=== PATIENT | female | born 1960 | race Caucasian/White ===

== ENCOUNTER 2020-01-04 09:28 | Emergency (ER) | payer OTHER ==
[2020-01-04 09:34] VITALS: RESP 18; TEMP 98.1
[2020-01-04] MEDS ORDERED: CLINDAMYCIN 150 MG CAP PO STA (09:45)
[2020-01-04] MEDS ORDERED: ACET/COD 300 MG/30 MG STARTER PACK 6 TAB BTL PO STA (09:45)
--- NOTE | 2020-01-04 09:50 | ED ---
ENT HPI - General Source: patient, RN notes reviewed, old records reviewed Mode of arrival: ambulatory Limitations: no limitations <Karen Raymond - Last Filed: 01/04/20 10:15> <Monica Lemon - Last Filed: 01/07/20 00:42> - General Chief complaint: Dental/Oral Stated complaint: dental pain Time Seen by Provider: 01/04/20 09:37 - History of Present Illness Initial comments: This Patient is a 59-year-old female who presents emergency department today with chief complaint of left upper dental pain for the past 2 weeks. She reports that she was seen by her clinic and was started on an insulin. She reports she's finish the antibiotic but persistent pain is now noticed some facial swelling to the left maxilla. Patient states that she's had no fevers or chills. Patient was also found to have elevated blood pressure while in emergency department with a blood pressure 198/116. Patient denies any headache or chest pain. She reports that she is not have a known history of hypertension or has had any other significant complaints. (Karen Raymond) - Related Data Home Medications Medication Instructions Recorded Confirmed Acetaminophen Tab [Tylenol Tab] 500 mg PO Q6H PRN 01/04/20 01/04/20 Previous Rx's Medication Instructions Recorded Clindamycin [Cleocin] 300 mg PO Q6H #56 cap 01/04/20 amLODIPine [Norvasc] 5 mg PO DAILY #14 tab 01/04/20 Allergies Allergy/AdvReac Type Severity Reaction Status Date / Time No Known Allergies Allergy Verified 01/04/20 10:06 Review of Systems ROS Other: All systems not noted in ROS Statement are negative. <Karen Raymond - Last Filed: 01/04/20 10:15> ROS Other: All systems not noted in ROS Statement are negative. <Monica Lemon - Last Filed: 01/07/20 00:42> ROS Statement: Those systems with pertinent positive or pertinent negative responses have been documented in the HPI. Past Medical History Past Medical History: No Reported History History of Any Multi-Drug Resistant Organisms: None Reported Past Surgical History: No Surgical Hx Reported Past Psychological History: No Psychological Hx Reported Smoking Status: Current every day smoker Past Alcohol Use History: Occasional Past Drug Use History: None Reported <Karen Raymond - Last Filed: 01/04/20 10:15> General Exam Limitations: no limitations General appearance: alert, in no apparent distress Head exam: Present: atraumatic, normocephalic, normal inspection Eye exam: Present: normal appearance, PERRL, EOMI. Absent: scleral icterus, conjunctival injection, periorbital swelling ENT exam: Present: normal exam, mucous membranes moist, other (Patient has dental pain in the left mandibular area, evidence of multiple dental caries. Abscess around tooth 12. ) Neck exam: Present: normal inspection. Absent: tenderness, meningismus, lymphadenopathy Respiratory exam: Present: normal lung sounds bilaterally. Absent: respiratory distress, wheezes, rales, rhonchi, stridor Cardiovascular Exam: Present: regular rate, normal rhythm, normal heart sounds. Absent: systolic murmur, diastolic murmur, rubs, gallop, clicks GI/Abdominal exam: Present: soft, normal bowel sounds. Absent: distended, tenderness, guarding, rebound, rigid <Karen Raymond - Last Filed: 01/04/20 10:15> - General Exam Comments Initial Comments: 59-year-old female. Alert and oriented 3. No distress. (Karen Raymond) Course <Karen Raymond - Last Filed: 01/04/20 10:15> Vital Signs 01/04/20 01/04/20 09:31 10:11 Temperature 98.1 F Pulse Rate 104 H 96 Respiratory 18 18 Rate Blood Pressure 198/116 158/92 O2 Sat by Pulse 98 99 Oximetry - Reevaluation(s) Reevaluation #1: 01/04/20 09:53 Patient is reevaluated blood pressure is now 186/98. (Karen Raymond) Medical Decision Making <Karen Raymond - Last Filed: 01/04/20 10:15> <Monica Lemon - Last Filed: 01/07/20 00:42> - Medical Decision Making Patient is a pleasant 39-year-old female presents emergency Department chief complaint of left upper dental pain. Has evidence of multiple dental caries, with some gingival erythema restaurant in tooth #12. Multiple missing teeth. At this time Patient was started on clindamycin that she had finished p rescription of penicillin. Also given starter pack for pain medication. I discussed the Patient does have elevated blood pressure and emergency department however without any intervention it did come down last blood pressure was 158/92. I did discuss that this is still concerning for blood high blood pressure and would like to start the Patient on a short course of low-dose blood pressure medication 5 mg of Norvasc. Patient is agreeable to this plan. Understands treatment plan. (Karen Raymond) I was available for consultation in the emergency department. The history and physical exam were done by the midlevel provider. I was consulted for this patients care. I reviewed the case with the midlevel provider and based on their presentation of the patient, I agree with the assessment, medical decision making and plan of care as documented. Chart was dictated using [employer] dictation software. Attempts were made to correct any dictation errors however some typographical errors may persist. Patient was seen during a national state of emergency due to the Covid-19 pandemic. (Monica Lemon) Disposition Is patient prescribed a controlled substance at d/c from ED?: No Time of Disposition: 10:15 <Karen Raymond - Last Filed: 01/04/20 10:15> <Monica Lemon - Last Filed: 01/07/20 00:42> Clinical Impression: Episode of hypertension, Pain, dental Disposition: HOME SELF-CARE Condition: Good Instructions (If sedation given, give patient instructions): Hypertension (ED), Toothache (ED) Additional Instructions: [facility] [id number] [place] [address] [phone] (existing clients only) For new clients: [phone] 1st consult: $50 (includes Xrays) Usually 30% less then private dentist for visits after. [employer] Have to pay $50 for Xrays anmd rest is covered. [phone] Patient advised to have follow-up with primary care physician in regards to elevated blood pressure. Start taking the blood pressure medication as prescribed and continue to monitor. Prescriptions: Clindamycin [Cleocin] 300 mg PO Q6H #56 cap amLODIPine [Norvasc] 5 mg PO DAILY #14 tab Referrals: None,Stated [Primary Care Provider] - 1-2 days Bernardo Mobley MD [STAFF PHYSICIAN] - 1-2 days
[2020-01-04] MEDS ORDERED: cloNIDine HCL 0.1 MG TAB PO STA (10:01)
[2020-01-04 10:11] VITALS: BP 158/92; PULSE 96
== END 2020-01-04 10:35 | disposition home or self-care (01) ==
LOC: EC 09:28
DX: K08.89 Other specified disorders of teeth and supporting structures (principal); I10 Essential (primary) hypertension; K02.9 Dental caries, unspecified; F17.200 Nicotine dependence, unspecified, uncomplicated
CPT/HCPCS: 99283